=== PATIENT | male | born 1950 | race Caucasian/White ===

== ENCOUNTER → 2016-03-15 | Outpatient (CLI) | payer BC ==
[2016-03-15 15:13] LABS: Partial Thromboplastin Time 33.5 sec (22.0-30.0); Prothrombin Time 28.5 sec (9.0-12.0)
[2016-03-15 15:23] LABS: Basophils % (A) 1 %; CH 30.3; CHCM 33.3; Eosinophils # (A) 0.1 k/uL (0-0.7); Eosinophils % (A) 1 %; HDW 2.88; HGB 15.1 gm/dL (13.0-17.5); Luc # (Auto) 0.08; Luc % (Auto) 2; Lymphocytes # (A) 1.2 k/uL (1.0-4.8); Lymphocytes % (A) 26 %; MCH 28.7 pg (25.0-35.0); MCHC 31.4 g/dL (31.0-37.0); MCV 91.5 fL (80.0-100.0); Mean Platelet Volume 8.3; Monocytes # (A) 0.3 k/uL (0-1.0); Monocytes % (A) 7 %; Neutrophils # (A) 2.9 k/uL (1.3-7.7); Neutrophils % (A) 63 %; RBC 5.25 m/uL (4.30-5.90); RDW 13.8 % (11.5-15.5); WBC 4.6 k/uL (3.8-10.6); WBC (Perox) 4.81
--- NOTE | 2016-03-15 15:55 | XR ---
EXAMINATION TYPE: XR chest 2V DATE OF EXAM: 03/15/2016 2:55 PM COMPARISON: Prior chest x-ray second of September 2015 HISTORY: Thyroid nodule, preop cervical fusion TECHNIQUE: Frontal and lateral views of the chest are obtained. FINDINGS: Postoperative changes are again noted. No focal airspace disease, pneumothorax, or pleural effusion evident. Cardiomediastinal silhouette, pulmonary vascularity and víctor are stable. There is mild spinal curvature. Prominent lung volumes suggests underlying COPD. Suspect there may be within m itral valve replacement. IMPRESSION: No acute cardiopulmonary process. Additional findings above.
== END | disposition home or self-care (01) ==
LOC: LABPAT 14:06
PROVIDERS: ATTEND Orthopaedic Surgery Orthopaedic Surgery of the Spine
DX: Z01.818 Encounter for other preprocedural examination (principal); Z01.812 Encounter for preprocedural laboratory examination
CPT/HCPCS: 71020; 85025; 85610; 85730; 86850; 86900; 86901; 87070

== ENCOUNTER 2016-03-26 11:23 | Inpatient (IN) | payer BC ==
[2016-03-15 12:57] VITALS: BMI 31.4
[~2016-03-26 11:23] MED LIST: BACITRACIN 50,000 UNIT, POLYMYXIN B 500,000 UNIT in SODIUM CHLORIDE 0.9% IRRIGATIO 1,00... IRRIGATION ONE; DEXAMETHASONE SOD PHOSPHATE 10 MG/ML 1 ML VIAL IV ONE; HYDROmorphone 1 MG/ML 1 ML SYRINGE IVP PRN; MIDAZOLAM 2 MG/2 ML VIAL IV PRN; ONDANSETRON 4 MG/2 ML VIAL IVP ONE; SCOPOLAMINE 1.5MG/72HR PATCH TRANSDERM ONE; ceFAZolin 2 GM in SODIUM CHLORIDE 0.9% 100 ML IVPB ONE
[2016-03-26] MEDS ORDERED: LIDOCAINE 1% 20 ML VIAL (10MG/ML) FOR IV START INTRADERMA ONE (12:08)
[2016-03-26] MEDS: LACTATED RINGERS 1,000 ML IV SCH (12:10)
[2016-03-26] MEDS ORDERED: DEXAMETHASONE SOD PHOS (MDV) 100 MG/10 ML VIAL ONE (12:51)
[2016-03-26] MEDS ORDERED: MIDAZOLAM 2 MG/2 ML VIAL ONE (12:51)
[2016-03-26] MEDS ORDERED: PHENYLEPHRINE-0.9% NACL SYG 1 MG/10 ML SYRINGE ONE (12:51)
[2016-03-26] MEDS ORDERED: PROPOFOL 10 MG/ML 20 ML VIAL IV ONE (12:51)
[2016-03-26] MEDS ORDERED: LIDOCAINE 1% INJ 10MG/ML (20 ML MDV) ONE (12:51)
[2016-03-26] MEDS ORDERED: fentaNYL (PF) 50 MCG/ML 2 ML AMP ONE (12:51)
[2016-03-26] MEDS ORDERED: SUCCINYLCHOLINE CHLORIDE 100 MG/5 ML SYR IV ONE (12:51)
[2016-03-26] MEDS ORDERED: ePHEDrine 50 MG/ML 1 ML AMP ONE (12:51)
[2016-03-26] MEDS ORDERED: ONDANSETRON 4 MG/2 ML VIAL ONE (12:51)
[2016-03-26 13:15] LABS: INR 1.1 (<1.1); Prothrombin Time 11.2 sec (9.0-12.0)
[2016-03-26] MEDS ORDERED: LIDOCAINE 0.5%-EPI 1:200,000 50 ML VIAL SQ ONE (13:40)
[2016-03-26] MEDS ORDERED: GELATIN SPONGE,ABSORB (LARGE) 1 EACH SPONGE TOPICAL ONE (13:40)
[2016-03-26] MEDS ORDERED: THROMBIN (BOVINE) 5,000 UNIT VIAL TOPICAL ONE (13:41)
--- NOTE | 2016-03-26 14:53 | XR ---
EXAMINATION TYPE: XR cervical spine 1V DATE OF EXAM: 03/26/2016 2:00 PM COMPARISON: NONE HISTORY: Needle placement 1 view demonstrates endotracheal tube and a surgical instrument along the anterior margin the C5-C6 d isc space. IMPRESSION: 1. Intraoperative localization.
[2016-03-26] MEDS ORDERED: HYDROmorphone 1 MG/ML 1 ML SYRINGE IVP PRN (15:42)
[2016-03-26] MEDS ORDERED: BENZOCAINE/MENTHOL LOZENG 1 EACH LOZENGE MUCOUS MEM PRN (15:42)
[2016-03-26] MEDS ORDERED: MAG HYDROX/AL HYDROX/SIMETH 30 ML CUP PO PRN (15:43)
[2016-03-26] MEDS ORDERED: ONDANSETRON 4 MG/2 ML VIAL IVP PRN (15:43)
[2016-03-26] MEDS ORDERED: LACTATED RINGERS 1,000 ML IV ONE ×2 (15:51)
--- NOTE | 2016-03-26 15:51 | P.OP ---
Date of Procedure: 03/26/16 Preoperative Diagnosis: Cervical stenosis C4 5 C5 6 C6 7, loss of cervical orthosis, degenerative disc disease C4 5 C5 6 C6 7, upper extremity radiculopathy, neck pain Postoperative Diagnosis: Same Anesthesia: GETA Pathology: none sent Condition: stable Disposition: PACU Description of Procedure: BRIEF OPERATIVE NOTE Preoperative Diagnosis:Cervical stenosis C4 5 C5 6 C6 7, degenerative disc disease C4 5 C5 6 C6 7, loss of cervical lordosis, neck pain with upper extremity radiculopathy Postoperative Diagnosis: Same Procedure: Anterior cervical decompression and fusion C4 5 C5 6 C6 7 Placement of interbody allograft bone graft C4 5 C5 6 C6 7 Application of anterior cervical plate C4 5 6 7 Surgeon: Dr. Wade Stretching Press Operator: Remy Gore is present throughout the entire the case persistence during positioning, dissection, exposure, visualization, and all crucial elements of the case as well as closure. Anesthesia: General anesthesia per Dr. Doty Estimated blood loss: Approximately 50 mL Complications: None apparent Components implanted: K2M Ama anterior cervical plate system with screws measuring 4.0 and 4.3 mm x 14 mm Disposition: To recovery room in good stable condition. OPERATIVE INDICATIONS The patient has had long-standing issues in their neck and upper extremities. His found to have severe disc degeneration at his cervical spine without evidence of loss of the cervical lordosis had significant cervical stenosis. His imaging findings correlated well with his neck and upper extremity symptoms. The patient has been through conservative treatment. Despite aggressive conservative treatment he was not having any prolonged benefit and was having worsening of his symptoms. We discussed various treatment options including surgery, and the patient wishes to proceed with surgery We discussed the risk, patient's alternatives and benefits of surgery including but not limited to, risk of bleeding risk of infection, risk of need for further surgery , risk of decreased, loss of motion, muscle function, malunion nonunion, hardware failure, nerve damage, paralysis, heart attack, and . OPERATIVE SUMMARY After discussing all the risks, patient alternatives and benefits at length, the patient elected to proceed with surgical intervention, signed informed consent, and presented for their procedure. The patient was seen and examined in the preoperative holding area and the surgical site was marked. The patient was given antibiotics and brought to the operating room. The patient was positioned on the operating room table in a supine position being careful to pad any bony prominences and pressure points. The patient was sedated and intubated by anesthesia in standard fashion. Once the airway and C- spine were stabilized the patient's arms were padded and tucked at her side, with her shoulders gently taped. The head was placed in a donut pad with the neck in good neutral alignment and position. We were careful to maintain the patient's cervical spine and good neutral alignment and position throughout. The patient was prepped and draped in a normal standard fashion. An appropriate timeout and keystone protocol performed. We were able to proceed with the surgery. The local wound area was infiltrated with local anesthetic. An incision was made transversely approximately 2-1/2 cm over the appropriate levels over C5 6. Dissection was taken down subcutaneously to the level of the platysma which was split in line with its fibers. Dissection was taken with a carotid approach, with the trachea and esophagus medial and the carotid sheath laterally. We dissected down to the anterior surface of the vertebral bodies from C4 to C7. Intraoperative x-ray was taken which showed a marker at the appropriate level at C5 6. With the appropriate level positively confirmed, we were able to proceed with discectomy at the appropriate levels first at C6 7 and at C5 6 and then at C4 5. All of the operative levels were exposed appropriately. The patient had all their twitches back, and there was no evidence of recurrent laryngeal issue. The wound was copiously irrigated and suctioned dry as had been done periodically throughout the case. At the appropriate level/levels, I established an annulotomy with an 11 blade scalpel. A discectomy was performed with a combination of pituitary rongeurs, curettes , a high-speed bur, and Kerrison rongeurs. The posterior longitudinal ligament was taken down as were any posterior osteophytes. Note was made of obvious severe disc degeneration and near complete disc height loss particular at C5 6 and C6 7. I was able to take down the disc space and the endplates as well as the posterior disc and the posterior longitudinal ligament. This gave good central and bilateral foraminal decompression. There is no evidence of any dural tear or leak. The endplates were prepared with a high-speed bur. With the endplates in good parallel position, I was able to size for the appropriate size interbody graft. The wound was irrigated and suctioned dry the graft was prepared and malleted into position. It had good alignment and position with the anterior surface flush with the anterior surface of the vertebral bodies. This was done similarly the appropriate levels first at C6 7 than at C5 6 and then at C4 5. With the grafts intact, I was able to measure and contour and appropriate sized plate. The plate was positioned at the midline over the appropriate levels at C4 5 6 and 7. Screw holes were established with a hand drill and drill guide. Screws were placed in good alignment and position with excellent bony purchase. They were seated under the locking device. The construct was checked and found to be stable. Intraoperative x-ray was taken which showed good alignment and position of the implants at the appropriate levels. There was no evidence of any dural tear or leak. Good hemostasis was maintained. The wound was copiously irrigated and suctioned dry as had been done periodically throughout the case. The platysma was closed with absorbable suture. The subcutaneous tissue was closed. The subcuticular tissue was closed with absorbable suture. The wound was cleaned and dried and dressed appropriately. A soft cervical collar was placed appropriately. The patient was woken up by anesthesia, extubated, transferred back gently to their hospital bed and brought to the recovery room in good stable condition. The patient will be admitted to the hospital for appropriate postoperative care , medical management and monitoring. We will continue to follow them closely about the postoperative course.
[2016-03-26] MEDS: DIAZEPAM 5 MG TAB PO PRN ×2 (17:30→23:08)
[2016-03-26] MEDS ORDERED: WARFARIN 3 MG TAB PO SCH (18:00)
[2016-03-26] MEDS: HYDROmorphone 1 MG/ML 1 ML SYRINGE IVP PRN ×2 (18:02→23:07)
[2016-03-26] MEDS: SODIUM CHLORIDE 0.9% 1,000 ML IV SCH (18:05)
[2016-03-26] MEDS: HYDROcodone/APAP 7.5-325MG 1 EACH TAB PO PRN (20:04)
[2016-03-26] MEDS: busPIRone HCl 5 MG TAB PO SCH (20:06)
[2016-03-26] MEDS: ceFAZolin 3 GM in SODIUM CHLORIDE 0.9% 100 ML IVPB SCH (20:06)
[2016-03-26] MEDS: METOPROLOL SUCCINATE (ER) 25 MG TAB.ER.24H PO SCH (20:07)
[2016-03-26] MEDS: PANTOPRAZOLE 40 MG TABLET PO SCH (20:07)
[2016-03-26] MEDS ORDERED: BRIMONIDINE TARTRATE 0.2% DROPS 5 ML BTL RIGHT EYE SCH (21:00)
[2016-03-26] MEDS ORDERED: AMITRIPTYLINE HCL 25 MG TAB PO SCH (21:00)
[2016-03-26] MEDS ORDERED: ATORVASTATIN 20 MG TAB PO SCH (21:00)
--- NOTE | 2016-03-26 21:05 | CONS ---
DATE OF CONSULTATION: 03/26/2016. REASON FOR CONSULTATION: Medical management requested by Dr. Wade. CONSULTATION: This pleasant 66 -year-old patient has undergone cervical spine surgery. Prior to surgery patient is having a lot of pain in the neck, shoulder, numbness and weakness on the left arm. The patient's chronic stable medical conditions include GERD, hyperlipidemia, hypertension, Marie's esophagus, obstructive sleep apnea for which he uses CPAP machine. Post procedure patient has got a collar in place. Sitting up. Patient did walk to the bathroom. Some pain in the left shoulder area. is at bedside. No nausea, vomiting, no dizziness. REVIEW OF SYSTEMS: CONSTITUTIONAL: Tired. HEENT: As above. RESPIRATORY: None. CARDIOVASCULAR: None. GASTROINTESTINAL: Heartburn. GENITOURINARY: None. MUSCULOSKELETAL: Pain in his lower back. Dermatological: None. Hematological: None. PSYCHIATRY: None. NEUROLOGICAL: None. 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 GERD, hypertension, hyperlipidemia, osteoarthritis of the lower back, obstructive sleep apnea, Marie's esophagus. PAST SURGICAL HISTORY: Cholecystectomy, hernia repair and ( ) repair. 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 Alcohol rarely. ( ) . The family history of DVT and cancer. HOME MEDICATIONS: 1. BuSpar 7.5 p.o. b.i.d. 2. Coumadin 3 milligrams p.o. Saturday, Saturday, Saturday and Saturday, Saturday. 2 mg on Saturday and . 3. Aldactone 25 mg a day. 4. Prilosec 20 mg b.i.d. 5. Men's multivitamin 1 tablet p.o. daily. 6. Toprol-XL 25 p.o. b.i.d. 7. Potassium. 8. Cozaar 25 mg p.o. daily. 9. Depakote 500 mg p.o. daily. 10. Vitamin D3 ( ) units p.o. daily. 11. Alphagan 0.2% one drop to right eye q.h.s. 12. Lipitor 20 mg q.h.s. 13. Aspirin 81 mg p.o. q.h.s. 14. [place] 7.5 q.4 p.r.n. On examination, temperature 97.5, pulse 99, respiratory rate 16, blood pressure 130/63, pulse ox 93% liters. GENERAL APPEARANCE: Well built, body mass index 31.4, sitting on the edge of bed. EYES: Pupils equal. Conjunctivae normal. HEENT: External appearance of nose and ears normal. Oral cavity normal. NECK: Cervical collar in place. JVD unable to assess. Mass not palpable. RESPIRATORY: Effort increased. LUNGS: Fair air entry. CARDIOVASCULAR: First and second sounds normal. No edema. ABDOMEN: Soft. Nontender. Liver and spleen not palpable. LYMPHATIC: No lymph nodes palpable in neck or axillae. PSYCHIATRY: Alert and oriented x3. Mood and affect normal. NEUROLOGICAL: Pupils equal. Cranial nerves grossly intact. Power and sensation grossly intact. INVESTIGATIONS: Potassium 5. ASSESSMENT: 1. Cervical spine stenosis surgery. 2. History of atrial fibrillation on Coumadin. 3. Gastroesophageal reflux disease. 4. Hyperlipidemia. 5. Hypertension. 6. 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 7. Obstructive sleep apnea uses CPAP machine. 8. Marie's esophagus. 9. Recent history of mitral valve prolapse repair. PLAN: Home medications are reviewed. Can be resumed. DVT prophylaxis per Dr. Wade. Care was discussed with the patient's family at the bedside. Patient uses CPAP machine. Thank you, Dr. Wade. Copy to Dr. Webb.
[2016-03-27] MEDS: ceFAZolin 3 GM in SODIUM CHLORIDE 0.9% 100 ML IVPB SCH (04:04)
[2016-03-27] MEDS: HYDROcodone/APAP 7.5-325MG 1 EACH TAB PO PRN ×2 (04:07→09:03)
[2016-03-27] MEDS: SODIUM CHLORIDE 0.9% 1,000 ML IV SCH (07:28)
[2016-03-27] MEDS: LACTATED RINGERS 1,000 ML IV SCH (07:28)
--- NOTE | 2016-03-27 08:31 | P.DS ---
Providers Date of admission: 03/26/16 11:23 Expected date of discharge: 03/27/16 Attending physician: Elvia Wade Consults: 03/26/16 15:43 Consult Physician Routine Consulting Provider: Arden Lin Consult Reason/Comments: Medical management Do you want consulting provider notified?: Yes Primary care physician: Paresh Webb - Discharge Diagnosis(es) (1) Degenerative disc disease, cervical Current Visit: Yes Status: Acute (2) Cervicalgia Current Visit: Yes Status: Acute (3) Radiculopathy affecting upper extremity Current Visit: Yes Status: Acute (4) Cervical spinal stenosis Current Visit: Yes Status: Acute Hospital Course: This is a pleasant 65-year-old male who presented with C4-5, C5-6, and C6-7 cervical stenosis and degenerative disc disease, loss of cervical lordosis, cervical pain, and upper extremity radiculopathy who failed outpatient conservative therapy. He was admitted for an anterior cervical decompression and fusion C4-5, C5-6, and C6-7. The patient tolerated the procedure well and did well postoperatively. He states he is not currently experiencing any upper extremity radiculopathy symptoms. He has some discomfort at the surgical site but states his pain is well-controlled. Overall, he feels quite well this morning. He was able to eat breakfast without any difficulty. He states he is ready for discharge home. Condition on day of discharge stable. Patient will be discharged home. Patient was cleared preoperatively for surgery by Dr. Webb. Patient currently denies any nausea, vomiting, fever, or chills. Patient is eating and voiding freely without difficulty. Patient may shower Tegaderm dressing intact. Patient may remove Tegaderm dressing in 3 days and shower without a dressing at that time. Patient should keep Steri-Strips intact and allow them to fall off naturally. Patient should refrain from driving until at least after their first follow-up appointment in the office. He may continue wear his soft cervical collar for comfort and support as needed. Patient should avoid excessive neck flexion, extension, rotation, and lateral sidebending; no overhead lifting; no lifting greater than [address] Mehdi Wade was able to send a prescription to his pharmacy yesterday for [place] 7.5/325 mg 1 tab by mouth every 4 hours when necessary for severe pain. He is encouraged to avoid anti-inflammatories over the next 6 weeks. He may resume home medications. Physical Exam on day of discharge: Patient is awake, alert, and oriented 3 Vital signs stable Good chest excursion with deep inspiration and expiration Abdomen soft nontender No signs or symptoms of DVT; no calf pain Full range of motion of the cervical spine with adequate flexion, extension, and bilateral rotation Music Engraver strength, thumb strength, interosseous strength, biceps strength, triceps strength, and shoulder strength positive sustained bilaterally Soft cervical collar intact Incision is clean, dry, and intact; no erythema, purulence, or signs of infection Tegaderm dressing and non-stick Telfa intact Procedures: Anterior cervical decompression and fusion C4-5, C5-6, and C6-7 Patient Condition at Discharge: Stable Plan - Discharge Summary New Discharge Prescriptions: HYDROcodone/APAP 7.5-325MG [[place] 7.5-325] 1 tab PO Q4H PRN #120 tab PRN Reason: Severe Pain Discharge Medication List Amitriptyline HCl [Elavil] 25 mg PO HS 01/14/15 [History] Aspirin 81 mg PO DAILY 01/14/15 [History] Divalproex [Depakote] 500 mg PO DAILY 01/14/15 [History] Multivitamin [Men's Multi-Vitamin] 1 tab PO DAILY 01/14/15 [History] Omeprazole [PriLOSEC] 20 mg PO BID 01/14/15 [History] Cholecalciferol [Vitamin D3] 2,000 unit PO DAILY 09/27/15 [History] Metoprolol Succinate [Toprol XL] 25 mg PO BID 09/27/15 [History] Spironolactone [Spironolactone] 25 mg PO DAILY 09/27/15 [History] Warfarin Sodium [Warfarin Sodium] 2 mg PO TUTH 09/27/15 [History] Warfarin Sodium [Warfarin Sodium] 3 mg PO SUMOWEFRSA 09/27/15 [History] Atorvastatin [Lipitor] 20 mg PO HS 03/15/16 [History] Brimonidine Tartrate [Alphagan P 0.2% Ophth Soln] 1 drops RIGHT EYE HS 03/15/16 [History] Losartan Potassium [Cozaar] 25 mg PO DAILY 03/15/16 [History] busPIRone HCL [Buspar] 7.5 mg PO BID 03/15/16 [History] HYDROcodone/APAP 7.5-325MG [[place] 7.5-325] 1 tab PO Q4H PRN #120 tab 03/26/16 [ Rx] Follow up Appointment(s)/Referral(s): Elvia Wade DO [Doctor of Osteopathic Medicine] - 2 Weeks (With Remy Gaxiola at Dr. Wade's office) Activity/Diet/Wound Care/Special Instructions: Keep site clean. May shower with waterproof dressing intact but do not soak in a tub. On Saturday May remove dressing and leave Steri-Strips intact and allow them to fray off on their own. May ambulate to tolerance. Soft collar to be worn for comfort. Avoid heavy or rigorous activity. No repetitive bending twisting or lifting. No overhead work. Discharge Disposition: HOME SELF-CARE
[2016-03-27 08:33] VITALS: BP 119/64; PULSE 89; RESP 18; TEMP 97.5
[2016-03-27] MEDS: busPIRone HCl 5 MG TAB PO SCH (08:58)
[2016-03-27] MEDS: METOPROLOL SUCCINATE (ER) 25 MG TAB.ER.24H PO SCH (08:58)
[2016-03-27] MEDS: PANTOPRAZOLE 40 MG TABLET PO SCH (08:58)
[2016-03-27] MEDS ORDERED: LOSARTAN 25 MG TAB PO SCH (09:00)
[2016-03-27] MEDS ORDERED: SPIRONOLACTONE 25 MG TAB PO SCH (09:00)
[2016-03-27] MEDS ORDERED: ASPIRIN 81 MG CHEW PO SCH (09:00)
[2016-03-27] MEDS ORDERED: DIVALPROEX 500 MG TABLET.DR PO SCH (09:00)
--- NOTE | 2016-03-27 09:13 | XR ---
Cervical spine HISTORY: Status post anterior cervical fusion and discectomy Correlation to previous exam on same date earlier time. Single lateral view of the cervical spine. Endotracheal tube remains in place. Patient is status post anterior cervical fusion and discectomy at C4-C7. The screws at C4 may be within the disc space at C4-5. There is near anatomic alignment. Limi tation in the evaluation at C7-T1. IMPRESSION: Orthopedic follow-up as described.
[2016-03-27] MEDS ORDERED: MULTIVITAMINS, THERA 1 EACH TAB PO SCH (12:00)
[2016-03-27] MEDS ORDERED: CHOLECALCIFEROL 1,000 UNIT TAB PO SCH (12:00)
[2016-03-27] MEDS ORDERED: WARFARIN 2 MG TAB PO SCH (18:00)
== END 2016-03-27 10:00 | disposition home or self-care (01) | DRG 473 ==
LOC: 2ORMAIN 11:23 → 5ONC 16:02
PROVIDERS: ADMIT Orthopaedic Surgery Orthopaedic Surgery of the Spine; ATTEND Orthopaedic Surgery Orthopaedic Surgery of the Spine
PROC: 0RG20K0 Fusion of 2 or more Cervical Vertebral Joints with Nonautologous Tissue Substitute, Anterior Approach, Anterior Column, Open Approach (ICD-10-PCS; principal; 2016-03-26 13:00)
DX: M48.02 Spinal stenosis, cervical region (principal); M50.121 Cervical disc disorder at C4-C5 level with radiculopathy; M50.122 Cervical disc disorder at C5-C6 level with radiculopathy; M50.123 Cervical disc disorder at C6-C7 level with radiculopathy; I10 Essential (primary) hypertension; I48.91 Unspecified atrial fibrillation; H40.9 Unspecified glaucoma; K21.9 Gastro-esophageal reflux disease without esophagitis; E78.5 Hyperlipidemia, unspecified; K22.70 Barrett's esophagus without dysplasia; G47.33 Obstructive sleep apnea (adult) (pediatric); Z86.73 Personal history of transient ischemic attack (TIA), and cerebral infarction without residual deficits; Z87.891 Personal history of nicotine dependence; Z90.49 Acquired absence of other specified parts of digestive tract; Z79.01 Long term (current) use of anticoagulants; Z79.82 Long term (current) use of aspirin; Z79.899 Other long term (current) drug therapy
CPT/HCPCS: 72020; 84132; 85610; 86850; 86900; 86901

== ENCOUNTER → 2016-11-29 | Outpatient (CLI) | payer MEDICARE ==
--- NOTE | 2016-11-29 14:59 | CONS ---
CONSULTATION DATE OF SERVICE: 11/29/2016 66-year-old gentleman has been evaluated in [facility] for treatment of obstructive sleep apnea-hypopnea syndrome. HISTORY OF PRESENT ILLNESS/SLEEP WAKE EVALUATION: Patient has been diagnosed with obstructive sleep apnea in different institution about 8 years ago. Since that time he is on treatment with CPAP using equipment every night. His usual sleep time from 2:00 a.m. until 10:00 a.m. He denied any problem with falling asleep, has TV set in bedroom. He increased his weight from around 200 pounds up to 230 pounds at the present time for the last 8 years since he had the previous sleep study. [place] Sleepiness Scale is 3. PAST MEDICAL HISTORY: A patient was diagnosed with right eye stroke several years ago and he also had a episode to atrial fibrillation in 2016, hypertension, migraine, hyperlipidemia, acid reflux, anxiety. PAST SURGICAL HISTORY: Surgery for mitral valve repair in 2016, cholecystectomy, C4-C7 fusion in 2017. MEDICATIONS: Amitriptyline, atorvastatin, baby aspirin, Bus perone, , losartan, metoprolol, multivitamin, omeprazole, spironolactone, vitamin D, warfarin. SOCIAL HISTORY: Smoked in the past, quit 40 years ago. Alcohol consumption very rarely. FAMILY HISTORY: Hypertension, heart problems, hyperlipidemia, arthritis, snoring, pneumonia, headaches, cancer, acid reflux. REVIEW OF SYSTEMS: Sometimes sleepiness in during the day. No fevers No double vision. No recent chest pain. No shortness of breath. No abdominal pain. No bleeding episodes. No blood in urine. No seizure episodes. PHYSICAL EXAM: GENERAL: A gentleman without distress. VITAL SIGNS: BP 133/66, HR 64, RR 16, height 5 feet 10 inches, weight 230, BMI 33. Neck 16-3/4 inches in circumference. Temperature 97.9 oxygen saturation room air 95%. HEENT: PERRLA, EOMI. Evaluation of oropharynx showed extremely low position of soft palate. NECK: Supple. No JVD. Thyroid is not palpable. LUNGS: clear to percussion and to auscultation. Good air exchange. No wheezing or rhonchi. HEART: S1, S2 regular. No murmurs, gallops or rubs. ABDOMEN: Obese. Soft and nontender. Bowel sounds are present. No organomegaly appreciated. EXTREMITIES: No cyanosis or clubbing. COATER SMOKING PIPE: Awake, alert and oriented x3. Cranial nerves II through VII intact. There is no fasciculation or atrophy noted. No focal deficits observed. IMPRESSION: 1. Obstructive sleep apnea-hypopnea syndrome diagnosed about 8 years ago in different institution. The patient continued to use his CPAP and developed eye stroke and atrial fibrillation while he already was on CPAP. Increased his weight about 30 pounds since previous sleep study. Low position of soft palate. 2. Obesity, BMI 33. 3. Hypertension. 4. Status post mitral valve repair in 2016. 5. History of atrial fibrillation. 6. Hyperlipidemia. 7. Acid reflux. 8. Migraine. 9. Anxiety. 10.Status post cholecystectomy. 11.Status post right eye stroke. 12.Coronary artery disease, status post C4-C7 fusion in 2017. PLAN: 1. Repeat CPAP titration for evaluation of effective CPAP pressure at the present time. The patient increased his weight on about 30 pounds, had episodes of atrial fibrillation and right eye stroke while he will was already on CPAP. 2. Losing weight. 3. Sleep hygiene, regular time in bed for at least 8 hours. 4. No driving if feeling any sleepiness. Thank you very much for referring this patient for consultation. Sincerely, Joey Hartman MD, PhD, FAASM Diplomat of [place] [employer], Sleep Medicine Board by [place] [employer] [place] [employer] Ash Conveyor Operator of [facility] [place] MMUZIELL / JOHNN: [id number] /
== END ==
LOC: SLEEP 13:03
PROVIDERS: ATTEND Internal Medicine
DX: G47.33 Obstructive sleep apnea (adult) (pediatric) (principal); E66.9 Obesity, unspecified; E78.5 Hyperlipidemia, unspecified; K21.9 Gastro-esophageal reflux disease without esophagitis; I10 Essential (primary) hypertension; F41.9 Anxiety disorder, unspecified; I25.10 Atherosclerotic heart disease of native coronary artery without angina pectoris; G43.909 Migraine, unspecified, not intractable, without status migrainosus; Z90.49 Acquired absence of other specified parts of digestive tract; Z98.1 Arthrodesis status; Z68.33 Body mass index [BMI] 33.0-33.9, adult; Z87.891 Personal history of nicotine dependence; Z79.899 Other long term (current) drug therapy; Z79.82 Long term (current) use of aspirin; Z79.01 Long term (current) use of anticoagulants
CPT/HCPCS: 99211

== ENCOUNTER → 2017-03-14 | Outpatient (CLI) | payer MEDICARE ==
--- NOTE | 2017-03-14 13:47 | PN ---
PROGRESS NOTE DATE OF SERVICE: 03/14/2017 A 66-year-old gentleman who has been followed in the Sleep Center for treatment of obstructive sleep apnea-hypopnea syndrome. Recently patient had CPAP titration and I discussed results of the titration with the patient. Titration went very well, normal respiration. The patient received a new CPAP unit. I checked his CPAP unit. CPAP pressure is 11 cm of water, usage is 100% of the time more than 4 hours. Average usage is 8.4 hours. Leak is 26 L/minute for the last month, which is acceptable. Apnea- hypopnea index only 0.6, which is perfect. No snoring with the machine. [place] Sleepiness Scale today is 5. MEDICATIONS: Amitriptyline, atorvastatin, buspirone, losartan, metoprolol, vitamin C, omeprazole, spironolactone, warfarin. PHYSICAL EXAM: Patient in no distress. BP 128/67, HR 72, RR 16, weight 235, temp 97.7, oxygen saturation at room air 97%. OROPHARYNX: Extremely low position of soft palate. ABDOMEN: Obese. Neck Supple, no JVD. Thyroid is not palpable. LUNGS Clear to percussion and to auscultation. Good air exchange. No wheezing or rhonchi. HEART S1, S2 regular. No murmurs, gallops, or rubs. EXTREMITIES No clubbing or cyanosis. DIKE SUPERVISOR Awake, alert, and oriented X3. Cranial nerves 2 to 7 intact. There is no fasciculation or atrophy. noted. No focal deficits observed. IMPRESSION: 1. Obstructive sleep apnea-hypopnea syndrome. Patient demonstrated 100% compliance with treatment, benefitting from treatment, normal aspiration on CPAP. 2. Hypertension. 3. History of atrial fibrillation. 4. Hyperlipidemia. 5. Acid reflux. 6. History of migraines. 7. History of anxiety. 8. Status post cholecystectomy. 9. History of post right eye stroke. 10.Status post C4-C7 fusion in 2017. 11.Status post mitral valve repair in 2016. PLAN: 1. Patient will continue to use CPAP equipment every night. 2. Losing weight. 3. Sleep hygiene with regular time in bed for at least 8 hours. 4. No driving if feeling sleepiness. 5. Followup visit in 1 year or earlier if patient has any problems. Thank you very much for allowing me to participate in the management of your patient. Sincerely, Joey Hartman MD, PhD, FAASM Diplomat of [place] [employer] [place] [employer] Lining Ironer of [facility] [place] MMJOLIE / JEANINE: [id number] /
== END | disposition home or self-care (01) ==
LOC: SLEEP 12:59
PROVIDERS: ATTEND Internal Medicine
DX: G47.33 Obstructive sleep apnea (adult) (pediatric) (principal); I10 Essential (primary) hypertension; E78.5 Hyperlipidemia, unspecified; K21.9 Gastro-esophageal reflux disease without esophagitis; Z90.49 Acquired absence of other specified parts of digestive tract; Z86.79 Personal history of other diseases of the circulatory system; Z86.69 Personal history of other diseases of the nervous system and sense organs; Z98.1 Arthrodesis status

== ENCOUNTER 2018-04-02 09:39 | Day surgery (SDC) | payer MEDICARE ==
[2018-03-31 11:27] VITALS: BMI 33.5
--- NOTE | 2018-04-02 08:46 | P.GSHP ---
History of Present Illness H&P Date: 04/02/18 CHIEF COMPLAINT: GERD HISTORY OF PRESENT ILLNESS: The patient is a 67-year-old male who presents reports gastroesophageal reflux disease. Upper endoscopy was offered for further evaluation and management. PAST MEDICAL HISTORY: Please see list. PAST SURGICAL HISTORY: Please see list. MEDICATIONS: Please see list. ALLERGIES: Please see list. SOCIAL HISTORY: No illicit drug use FAMILY HISTORY: No reports of Crohn disease or ulcerative colitis. REVIEW OF ORGAN SYSTEMS: CONSTITUTIONAL: No reports of fevers or chills. GI: Denies any blood in stools or constipation. PHYSICAL EXAM: VITAL SIGNS: Stable GENERAL: Well-developed and pleasant in no acute distress. HEENT: No scleral icterus. Extraocular movements grossly intact. Moist buccal mucosa. NECK: Supple without lymphadenopathy. CHEST: Unlabored respirations. Equal bilateral excursions. CARDIOVASCULAR: Regular rate and rhythm. Distal 2+ pulses. ABDOMEN: Soft, nondistended. MUSCULOSKELETAL: No clubbing, cyanosis, or edema. ASSESSMENT: 1. Gastroesophageal reflux disease PLAN: 1. Recommend proceeding with an upper endoscopy Past Medical History Past Medical History: Atrial Fibrillation, CVA/TIA, Eye Disorder, GERD/Reflux, Hyperlipidemia, Hypertension, Osteoarthritis (OA), Sleep Apnea/CPAP/BIPAP Additional Past Medical History / Comment(s): hx. migraine headaches-, mitral valve prolapse, ?stroke behind right eye-uses eye drops, uses CPAP, HX KERNS' S ESOPHAGUS, after heart sx went into afib History of Any Multi-Drug Resistant Organisms: None Reported Past Surgical History: Cholecystectomy, Hernia Repair Additional Past Surgical History / Comment(s): Mitral vaLVE repair-05/19/2015. COLONOSCOPY, EGD. EPIDURAL SHOTS Past Anesthesia/Blood Transfusion Reactions: No Reported Reaction Smoking Status: Former smoker - Past Family History Mother Family Medical History: Cancer, Deep Vein Thrombosis (DVT) Medications and Allergies Home Medications Medication Instructions Recorded Confirmed Type Amitriptyline HCl [Elavil] 25 mg PO HS 01/14/15 03/31/18 History Aspirin 81 mg PO DAILY 01/14/15 03/31/18 History Divalproex [Depakote] 500 mg PO DAILY 01/14/15 03/31/18 History Multivitamin [Men's Multi-Vitamin] 1 tab PO DAILY 01/14/15 03/31/18 History Omeprazole [PriLOSEC] 20 mg PO BID 01/14/15 03/31/18 History Cholecalciferol [Vitamin D3] 2,000 unit PO DAILY 09/27/15 03/31/18 History Metoprolol Succinate [Toprol XL] 25 mg PO BID 09/27/15 03/31/18 History Spironolactone 25 mg PO DAILY 09/27/15 03/31/18 History [facility] 09/27/15 03/31/18 History Warfarin Sodium 3 mg PO 09/27/15 03/31/18 History Atorvastatin [Lipitor] 20 mg PO HS 03/15/16 03/31/18 History Brimonidine Tartrate [Alphagan P 1 drops RIGHT EYE HS 03/15/16 03/31/18 History 0.2% Ophth Soln] Losartan Potassium [Cozaar] 25 mg PO DAILY 03/15/16 03/31/18 History busPIRone HCL [Buspar] 7.5 mg PO BID 03/15/16 03/31/18 History Acetaminophen-Codeine 300-30mg 1 tab PO Q6H PRN 03/31/18 03/31/18 History [Tylenol w/codeine #3] Allergies Allergy/AdvReac Type Severity Reaction Status Date / Time No Known Allergies Allergy Verified 03/31/18 11:22
[~2018-04-02 09:39] MED LIST changes: -BACITRACIN 50,000 UNIT, POLYMYXIN B 500,000 UNIT in SODIUM CHLORIDE 0.9% IRRIGATIO 1,00... IRRIGATION ONE; -DEXAMETHASONE SOD PHOSPHATE 10 MG/ML 1 ML VIAL IV ONE; -HYDROmorphone 1 MG/ML 1 ML SYRINGE IVP PRN; +LACTATED RINGERS 1,000 ML IV SCH; +LIDOCAINE 1% 20 ML VIAL (10MG/ML) FOR IV START INTRADERMA PRN; -MIDAZOLAM 2 MG/2 ML VIAL IV PRN; -ONDANSETRON 4 MG/2 ML VIAL IVP ONE; -SCOPOLAMINE 1.5MG/72HR PATCH TRANSDERM ONE; -ceFAZolin 2 GM in SODIUM CHLORIDE 0.9% 100 ML IVPB ONE
[2018-04-02 10:00] VITALS: RESP 16; TEMP 97
[2018-04-02] MEDS ORDERED: LIDOCAINE 1% INJ 10MG/ML (20 ML MDV) ONE (10:13)
[2018-04-02] MEDS ORDERED: GLYCOPYRROLATE 0.2 MG/ML 2 ML VIAL ONE (10:13)
[2018-04-02] MEDS ORDERED: PROPOFOL 10 MG/ML 20 ML VIAL IV ONE (10:13)
--- NOTE | 2018-04-02 10:37 | P.PCN ---
Date of Procedure: 04/02/18 Description of Procedure: PREOPERATIVE DIAGNOSIS: Gastroesophageal reflux disease. History of Marie's esophagus POSTOPERATIVE DIAGNOSIS: Gastroesophageal reflux disease. History of Marie's esophagus Gastritis. Diaphragmatic hiatal hernia OPERATION: Esophagogastroduodenoscopy with biopsies along antrum. SURGEON: Barb Gruber MD ANESTHESIA: MAC. INDICATIONS: The patient is a 67-year-old female who presents with a history of reflux disease. Benefits and risks of the procedure were described. Informed consent was obtained. DESCRIPTION: The patient was brought into the endoscopy suite and laid in the left lateral decubitus position. An Olympus gastroscope was passed along the posterior oropharynx down to the distal esophagus where the squamocolumnar junction was encountered at 40 cm from the incisors. The stomach was entered and no bile reflux was found. Additional findings are listed below. Biopsies with cold forceps were obtained of the antrum. The first through third portion of the duodenum was examined and unremarkable. Retroflexion of the scope confirmed Hill grade 4 lower esophageal valve. The squamocolumnar junction demonstrated LA grade A erosive esophagitis. The stomach was desufflated. The patient tolerated the procedure well. FINDINGS: Squamocolumnar junction 41 cm from the incisors. Diaphragmatic hiatus at 45 cm. Hiatal hernia, 4 cm Hill grade 4 lower esophageal valve. LA grade A erosive esophagitis. No active duodenitis. Chronic gastritis RECOMMENDATIONS: Upper endoscopy as needed. Plan - Discharge Summary Discharge Rx Participant: No New Discharge Prescriptions: No Action Amitriptyline HCl [Elavil] 25 mg PO HS Aspirin 81 mg PO DAILY Omeprazole [PriLOSEC] 20 mg PO BID Divalproex [Depakote] 500 mg PO DAILY Multivitamin [Men's Multi-Vitamin] 1 tab PO DAILY Metoprolol Succinate [Toprol XL] 25 mg PO BID Cholecalciferol [Vitamin D3] 2,000 unit PO DAILY Warfarin Sodium 2 mg PO TUTH Warfarin Sodium 3 mg PO TH Spironolactone 25 mg PO DAILY busPIRone HCL [Buspar] 7.5 mg PO BID Brimonidine Tartrate [Alphagan P 0.2% Ophth Soln] 1 drops RIGHT EYE HS Atorvastatin [Lipitor] 20 mg PO HS Losartan Potassium [Cozaar] 25 mg PO DAILY Acetaminophen-Codeine 300-30mg [Tylenol w/codeine #3] 1 tab PO Q6H PRN PRN Reason: Pain Discharge Medication List Amitriptyline HCl [Elavil] 25 mg PO HS 01/14/15 [History] Aspirin 81 mg PO DAILY 01/14/15 [History] Divalproex [Depakote] 500 mg PO DAILY 01/14/15 [History] Multivitamin [Men's Multi-Vitamin] 1 tab PO DAILY 01/14/15 [History] Omeprazole [PriLOSEC] 20 mg PO BID 01/14/15 [History] Cholecalciferol [Vitamin D3] 2,000 unit PO DAILY 09/27/15 [History] Metoprolol Succinate [Toprol XL] 25 mg PO BID 09/27/15 [History] Spironolactone 25 mg PO DAILY 09/27/15 [History] [facility] 2 [facility] 09/27/15 [History] Warfarin Sodium 3 mg PO TH 09/27/15 [History] Atorvastatin [Lipitor] 20 mg PO HS 03/15/16 [History] Brimonidine Tartrate [Alphagan P 0.2% Oph Soln] 1 drops RIGHT EYE HS 03/15/16 [History] Losartan Potassium [Cozaar] 25 mg PO DAILY 03/15/16 [History] busPIRone HCL [Buspar] 7.5 mg PO BID 03/15/16 [History] Acetaminophen-Codeine 300-30mg [Tylenol w/codeine #3] 1 tab PO Q6H PRN 03/31/18 [History] Follow up Appointment(s)/Referral(s): Barb Gruber MD [STAFF PHYSICIAN] - 04/29/18 Patient Instructions/Handouts: Hiatal Hernia (DC), Gastritis (DC), Diet for Stomach Ulcers and Gastritis (ED) Activity/Diet/Wound Care/Special Instructions: Start Coumadin Saturday04/04/18 Discharge Disposition: HOME SELF-CARE
[2018-04-02 11:31] VITALS: BP 119/74; PULSE 60
== END 2018-04-02 11:45 | disposition home or self-care (01) ==
LOC: ORWHC2ENDO 09:39
PROVIDERS: ATTEND Surgery Plastic and Reconstructive Surgery
DX: K29.50 Unspecified chronic gastritis without bleeding (principal); K21.0 Gastro-esophageal reflux disease with esophagitis; K22.10 Ulcer of esophagus without bleeding; K44.9 Diaphragmatic hernia without obstruction or gangrene; Z87.19 Personal history of other diseases of the digestive system; I48.91 Unspecified atrial fibrillation; E78.5 Hyperlipidemia, unspecified; I10 Essential (primary) hypertension; M19.90 Unspecified osteoarthritis, unspecified site; G43.909 Migraine, unspecified, not intractable, without status migrainosus; I34.1 Nonrheumatic mitral (valve) prolapse; F41.9 Anxiety disorder, unspecified; G47.33 Obstructive sleep apnea (adult) (pediatric); Z99.89 Dependence on other enabling machines and devices; Z79.01 Long term (current) use of anticoagulants; Z79.82 Long term (current) use of aspirin; Z79.899 Other long term (current) drug therapy; Z90.49 Acquired absence of other specified parts of digestive tract; Z88.8 Allergy status to other drugs, medicaments and biological substances; Z86.73 Personal history of transient ischemic attack (TIA), and cerebral infarction without residual deficits; Z87.891 Personal history of nicotine dependence
CPT/HCPCS: 88305; 43239; J2001; J2704

== ENCOUNTER → 2018-11-05 | Outpatient (CLI) | payer MEDICARE ==
--- NOTE | 2018-11-06 08:25 | US ---
EXAMINATION TYPE: US renals and bladder DATE OF EXAM: 11/05/2018 COMPARISON: NONE CLINICAL HISTORY: N17.9 Acute renal failure syndrome. EXAM MEASUREMENTS: Right Kidney: 10.8 x 4.7 x 4.5 cm Left Kidney: 10.5 x 5.0 x 4.7 cm Right Kidney: No hydronephrosis or masses seen Left Kidney: No hydronephrosis or masses seen Bladder: wnl There is no evidence for hydronephrosis at this point in time. No nephrolithiasis is seen. No isadora s are identified. The urinary bladder is anechoic. Bilateral ureteral jets are seen. There is some mild cortical thinning right kidney. Cortical medullary differentiation is maintained bilaterally. IMPRESSION: Mild cortical thinning right kidney.
== END | disposition home or self-care (01) ==
LOC: RADUSMAIN 15:53
PROVIDERS: ATTEND Family Medicine
DX: N28.89 Other specified disorders of kidney and ureter (principal)
CPT/HCPCS: 76770

== ENCOUNTER → 2018-11-19 | Outpatient (CLI) | payer MEDICARE ==
--- NOTE | 2018-11-19 13:33 | XR ---
EXAMINATION TYPE: XR foot complete RT DATE OF EXAM: 11/19/2018 COMPARISON: NONE HISTORY: Right heel pain TECHNIQUE: Three views are submitted. FINDINGS: The osseous structures are intact. There is no acute fracture or dislocation. There is a sclerotic density involving the calcaneus compatible with bone island. Small calcaneal spurs are noted. Severe arthropathy of the first MTP joint with hypertrophic changes noted. IMPRESSION: 1. Small calcaneal spurs. 2. Severe arthropathy first MTP joint..
== END | disposition home or self-care (01) ==
LOC: RADXRMAIN 13:14
PROVIDERS: ATTEND Family Medicine
DX: M12.871 Other specific arthropathies, not elsewhere classified, right ankle and foot (principal)

== ENCOUNTER → 2020-03-29 | Outpatient (CLI) | payer MEDICARE ==
--- NOTE | 2020-03-29 15:41 | XR ---
EXAMINATION TYPE: XR chest 2V DATE OF EXAM: 03/29/2020 COMPARISON: 03/15/2016 INDICATION: Fever, cough TECHNIQUE: Single frontal view of the chest is obtained. FINDINGS: The heart size is normal. The pulmonary vasculature is normal. The lungs are clear. IMPRESSION: 1. No acute pulmonary process.
== END | disposition home or self-care (01) ==
LOC: LABWHC1 14:42
PROVIDERS: ATTEND Family Medicine
DX: R05 Cough (principal)
CPT/HCPCS: 71046; U0003; C9803; U0005

== ENCOUNTER 2023-01-16 09:30 | Day surgery (SDC) | payer MEDICARE ==
[2023-01-15 10:55] VITALS: BMI 32.8
[~2023-01-16 09:30] MED LIST changes: +LIDOCAINE 1% (10MG/ML) FOR IV START INTRADERMA PRN; -LIDOCAINE 1% 20 ML VIAL (10MG/ML) FOR IV START INTRADERMA PRN
[2023-01-16 10:22] VITALS: TEMP 97.8
[2023-01-16] MEDS ORDERED: PROPOFOL 10 MG/ML 20 ML VIAL IV ONE (10:31)
--- NOTE | 2023-01-16 10:52 | P.PCN ---
Date of Procedure: 01/16/23 Procedure(s) Performed: BRIEF HISTORY: Patient is a 72-year-old pleasant white male scheduled for an elective colonoscopy as a part of screening for colon cancer. PROCEDURE PERFORMED: Colonoscopy with snare polypectomy. PREOPERATIVE DIAGNOSIS: Screening for colon cancer. IV sedation per Anesthesia. PROCEDURE: After informed consent was obtained, the patient, was brought into the endoscopy unit. IV sedation was administered by Anesthesia under continuous monitoring. Digital rectal examination was normal. Initially the Olympus CF-160 flexible video colonoscope was then inserted in the rectum, gradually advanced into the cecum without any difficulty. Careful examination was performed as the scope was gradually being withdrawn. Ileocecal valve and the appendiceal orifice were visualized and appeared normal. Prep was excellent. Mucosa of the cecum, ascending colon, appeared normal. In the transverse colon there was a 5 mm polyp removed by cold snare polypectomy. Diffuse scattered diverticulosis seen. Rest of the transverse colon, descending colon, sigmoid colon, and rectum appeared normal. Retroflexion was performed in the rectum and grade 2 internal hemorrhoids. were seen. The patient tolerated the procedure well. IMPRESSION: 5 mm transverse colon polyp status post cold snare polypectomy Diffuse scattered diverticulosis Grade 2 internal hemorrhoids RECOMMENDATIONS: Findings of this examination were discussed with the patient as well as his family. He was advised to follow with the biopsy results. If the biopsy reveals adenoma he can have a repeat colonoscopy in 5 years.
[2023-01-16 11:18] VITALS: BP 125/71; PULSE 75; RESP 16
== END 2023-01-16 11:26 | disposition home or self-care (01) ==
LOC: ORWHC2ENDO 09:30
PROVIDERS: ATTEND Internal Medicine Gastroenterology
DX: Z12.11 Encounter for screening for malignant neoplasm of colon (principal); D12.3 Benign neoplasm of transverse colon; K64.1 Second degree hemorrhoids; K57.30 Diverticulosis of large intestine without perforation or abscess without bleeding; I48.91 Unspecified atrial fibrillation; I10 Essential (primary) hypertension; G47.33 Obstructive sleep apnea (adult) (pediatric); K21.9 Gastro-esophageal reflux disease without esophagitis; Z79.82 Long term (current) use of aspirin; Z79.899 Other long term (current) drug therapy; Z98.890 Other specified postprocedural states
CPT/HCPCS: 88305; 45385; J2704

== ENCOUNTER → 2023-04-17 | Outpatient (CLI) | payer MEDICARE ==
--- NOTE | 2023-04-17 14:56 | CT ---
EXAMINATION: CT ABDOMEN AND PELVIS WITHOUT CONTRAST DATE OF EXAMINATION: 04/17/2023. COMPARISON: None available. INDICATION: Right-sided pain. PROCEDURE: Axial CT of the abdomen and pelvis was performed with contrast and sagittal and coronal reformatted images were performed. CT dose lowering techniques were used, to include: automated expos ure control, adjustment for patient size, and/or use of iterative reconstruction. FINDINGS: LOWER CHEST : The visualized lung bases are clear. There are no pleural or pericardial effusions. ABDOMEN: Liver and Biliary system: Normal. Adrenal glands: Normal. Kidneys and ureters: There is a 6.3 mm stone in the right ureteropelvic junction with mild right-side d hydronephrosis. There is a 2.2 cm cyst in the interpolar region of the right kidney. Left kidney an d ureter appear unremarkable. Spleen: Normal. Pancreas: Normal. Gallbladder: Surgically absent. Lymph nodes, Peritoneum and mesentery: There is no mesenteric or retroperitoneal lymphadenopathy. Gastrointestinal tract: There are no dilated loops of bowel or free intraperitoneal air. The appe ndix is normal. There is moderate to significant colonic diverticulosis without evidence of diverticu litis. Mild area of narrowing is seen within the sigmoid colonic region which may be due to under dis tention with malignancy not entirely excluded. Aorta/IVC: No aortic aneurysm. IVC normal. Abdominal wall: Normal. PELVIS: Fluid: There is no free fluid in the pelvis. Lymph Nodes: There is no pelvic or inguinal lymphadenopathy.. Urinary bladder: Normal. BONES: There are no osseous destructive lesions.. ADDITIONAL SIGNIFICANT FINDINGS: None. IMPRESSION: 1. 6.3 mm stone in the right ureteropelvic junction with mild right-sided hydronephrosis. 2. Diverticulosis without evidence of diverticulitis. 3. Area of under distention and wall thickening within the sigmoid colon may relate to underdistentio n with malignancy not entirely excluded. This would be best evaluated by direct visualization.
== END | disposition home or self-care (01) ==
LOC: RADCTMAIN 14:17
PROVIDERS: ATTEND Family Medicine
DX: N13.2 Hydronephrosis with renal and ureteral calculous obstruction (principal); K63.89 Other specified diseases of intestine; R31.29 Other microscopic hematuria
CPT/HCPCS: 74176

== ENCOUNTER 2023-05-28 09:10 | Day surgery (SDC) | payer MEDICARE ==
[~2023-05-28 09:10] MED LIST changes: -LIDOCAINE 1% (10MG/ML) FOR IV START INTRADERMA PRN
[2023-05-28] MEDS: LACTATED RINGERS 1,000 ML IV ONE (09:35)
[2023-05-28 10:04] VITALS: TEMP 96.6
[2023-05-28] MEDS ORDERED: PROPOFOL 10 MG/ML 20 ML VIAL IV ONE (10:31)
--- NOTE | 2023-05-28 10:38 | P.PCN ---
Date of Procedure: 05/28/23 Procedure(s) Performed: BRIEF HISTORY: Patient is a 72-year-old, pleasant, White male scheduled for an upper endoscopy as a part of long-standing history of GERD and Marie's esophagus diagnosed 3 years ago. PROCEDURE PERFORMED: Esophagogastroduodenoscopy With biopsy PREOPERATIVE DIAGNOSIS: GERD/Marie's esophagus. IV sedation per anesthesia. PROCEDURE: After informed consent was obtained, the patient was brought into the endoscopy unit. IV sedation was administered by Anesthesia under continuous monitoring. Initially the Olympus GIF-140 video endoscope was inserted into the mouth. Esophagus intubated without any difficulty. It was gradually advanced into the stomach and duodenum and carefully examined. The bulb and the second part of the duodenum appeared normal. The scope at this time was withdrawn to the stomach, adequately insufflated with air, and upon careful examination, mucosa of the antrum, Had linear areas of erythema consistent with gastritis and biopsies were done from this area. There were small gastric polyps noted in the gastric body which were also biopsied. Rest of thebody, cardia and the fundus appeared normal. The scope was then withdrawn into the esophagus. The GE junction was located at 45 cm from the incisors. There were 2 tongues of Marie's appearing mucosa extending 3 millimeters proximal to the GE junction that was biopsied.The Rest of theesophagus appeared normal. There were no erosions or ulcerations seen and the patient tolerated the procedure well. IMPRESSION: 1.Short segment Marie's esophagus. 2.Mild antral gastritis 3.Small gastric polyps. RECOMMENDATIONS: The findings of this examination were discussed with the patient As well as his family. He was advised to follow with the biopsy results. Continue with omeprazole 20 mg daily and follow antrum reflux measures. If the biopsy confirms the presence of Marie's esophagus, he can have a repeat upper endoscopy in 3 years..
[2023-05-28 11:23] VITALS: BP 145/65; PULSE 47; RESP 18
== END 2023-05-28 11:37 | disposition home or self-care (01) ==
LOC: ORWHC2ENDO 09:10
PROVIDERS: ATTEND Internal Medicine Gastroenterology
DX: K21.00 Gastro-esophageal reflux disease with esophagitis, without bleeding (principal); K29.50 Unspecified chronic gastritis without bleeding; K31.7 Polyp of stomach and duodenum; K22.70 Barrett's esophagus without dysplasia; G47.33 Obstructive sleep apnea (adult) (pediatric); I10 Essential (primary) hypertension; E78.5 Hyperlipidemia, unspecified; I48.91 Unspecified atrial fibrillation; N28.9 Disorder of kidney and ureter, unspecified; Z86.73 Personal history of transient ischemic attack (TIA), and cerebral infarction without residual deficits; Z79.01 Long term (current) use of anticoagulants; Z79.82 Long term (current) use of aspirin; Z79.899 Other long term (current) drug therapy; Z87.891 Personal history of nicotine dependence
CPT/HCPCS: 43239; J2704; 88305; 88342

== ENCOUNTER → 2024-05-29 | Outpatient (CLI) | payer MEDICARE ==
[2024-05-29 18:30] LABS: Chol/HDL Ratio 2.92 Ratio; LDL Cholesterol,Calculated 58.3 mg/dL (0.0-131.0)
== END | disposition home or self-care (01) ==
LOC: LABWHC1 13:38
PROVIDERS: ATTEND Family Medicine
DX: I48.20 Chronic atrial fibrillation, unspecified (principal)
CPT/HCPCS: 36415; 80061